=== PATIENT | male | born 1985 | race Caucasian/White ===

== ENCOUNTER 2017-10-28 07:05 | Emergency (ER) | payer OTHER ==
[~2017-10-28] VITALS: Ht 172.7 cm; Wt 163.3 kg
[2017-10-28] MEDS ORDERED: NORCO 5-325 TA1 EACH PO (08:59)
[2017-10-28] MEDS ORDERED: NAPROSYN500 MG PO (08:59)
== END 2017-10-28 09:34 | disposition home or self-care (01) ==
LOC: ER 07:05
DX: S22.32XA Fracture of one rib, left side, initial encounter for closed fracture (principal); F17.210 Nicotine dependence, cigarettes, uncomplicated; W01.0XXA Fall on same level from slipping, tripping and stumbling without subsequent striking against object, initial encounter; Y93.89 Activity, other specified; Y92.89 Other specified places as the place of occurrence of the external cause; Y99.8 Other external cause status